=== PATIENT | male | born 1970 | race Caucasian/White ===

== ENCOUNTER 2020-12-21 12:17 | Outpatient (CLI) | payer OTHER, SELFPAY ==
--- NOTE | ~2020-12-21 | CT_ITS ---
EXAMINATION: CT abdomen pelvis wo/w con DATE: 12/21/2020 13:04 INDICATION: Hematuria. TECHNIQUE: Computed tomography (CT) of the abdomen and pelvis was performed without and with intraven ous contrast using a total of 130 mL Omnipaque-350 intravenous contrast with a double-bolus technique for simultaneous opacification of the renal parenchyma and renal collecting system. Automated exposu re control and iterative reconstruction technique were employed. The dose-length product was 2427.38 mGy-cm. COMPARISON: CT abdomen and pelvis 02/15/2015 FINDINGS: The visualized portions of the lung bases demonstrate mild atelectasis. No pleural effusion. The hear t size is normal. No pericardial effusion. The liver and spleen are normal. There are changes of chol ecystectomy. The pancreas, adrenal glands, and kidneys are normal. There is no urolithiasis. The uret ers are well opacified and are normal. The bladder is normal. The prostate is mildly enlarged. There is diverticulosis of the colon without evidence of diverticulitis. There are no dilated loops of clara l. The appendix is normal. There is no free intraperitoneal fluid. There is a left inguinal hernia co ntaining fat. Again seen is fat stranding at the root of the small bowel mesentery that may be inflam mation, edema, or scarring. There is a mildly enlarged 10 x 22 mm mesenteric lymph node, likely react zeeshan. There are chronic bilateral L5 pars defects with 8 mm anterolisthesis of L5 on S1. There is mild thoracolumbar spondylosis. IMPRESSION: 1. No specific etiology for hematuria. Reviewed, dictated and finalized at location A.
== END 2020-12-21 12:18 | disposition home or self-care (01) ==
PROVIDERS: PCP Family Medicine; Visit Provider Urology
DX: R31.29 Other microscopic hematuria (principal)
CPT/HCPCS: 74178; Q9967

== ENCOUNTER → 2024-03-10 15:13 | Outpatient (REF) | payer OTHER, SELFPAY | LOC: ANHLAB 15:13 | PROVIDERS: PCP Family Medicine; Visit Provider Plastic Surgery | DX: D23.39 Other benign neoplasm of skin of other parts of face (principal); L72.0 Epidermal cyst | CPT/HCPCS: 88305 ==

== ENCOUNTER 2025-06-15 01:38 | Day surgery (SDC) | payer OTHER, SELFPAY ==
--- OUTSIDE RECORDS SUMMARY | 2005-02-23 05:15 | XMS_ITS | Continuity of Care Document ---
Author Organization [facility] Address [address] [place] [address] Phone Care Team Providers Care Senior Software Qa Analyst Name Role Phone Anne Marie Alvarez MD Unavailable Unavailable Advance Directives Directive Yes / No Effective Date File Name No Information Encounters Encounter Description Practice Location Reason(s) For Visit Diagnoses Date Provider Providers Copied on Encounter [facility], [address] [place] [address] [address], [place], [place], [id number], [place] tel:[phone] [facility] Professional No Information Jai-1 0-200 5 Kim Kenney. [address] [facility] [place], [address], [place]. tel:[phone] Family History Family Member Type Diagnosis Age At Onset No Information Payers Payer name Insurance type Covered libertarian ID Authoriza tion(s) No Information Social History Type Description Quantity Date Captured Comments Sex Male Smoking Status No Information Chief Complaint And Reason For Visit No Information Reason For Referral Reason For Referral No Information History Of Present Illness Encounter Date Complaint History Of Prese nt Illness No Information Functional Status Date Functional Assessmen t No Information Instructions Date Instruction Additional Infor mation No Information Assessments Type Assessment Date No Information Patient Care Teams Name Effective Dates (start - stop) Status Members No Information
[2025-05-31 12:17] VITALS: BMI 29.2
--- OUTSIDE RECORDS SUMMARY | 2025-06-15 01:40 | XMS_ITS | Clinical Summary ---
Author Organization [facility] Address [address] [place] [address] Care Team Providers Care Helper Driver Name Role Phone Unavailable Primary Care Provider Unavailabl e Source Comments [facility],non-owned Affiliates and Associated Physician Practices is amultiple site organization consisting of ambulatory clinics and hospital sitesin [place], [place], [place] and [place]. This disclosure is being madepursuant to the Care Everywhere program and may not contain all information available regarding this patient. 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 Gender Identity Not on file Sexual Orientation Not on file Plan of Treatment Health Maintenance Due Date Last Done Comments COLOGUARD (AGES 45-75) - COL ON CA SCREENING 1969 COLON MONITORING 1969 COLONOSCOPY - COLON CA SCREENING 1969 CT COLONOGRAPHY - COLON CA SCREENING 1969 Colorectal Cancer Screening 1969 FIT - COLON CA SCREENING 1969 FLEX SIG - COLON CA SCREENING 1969 LIPID TESTING 1969 HIV SCREENING 1984 HEPATITIS C SCREENING 06/26/1987 DTAP/TDAP/TD VACCINES (1 - Tdap) 1988 HEPATITIS B VACCINE (1 of 3 - 19+ 3-dose series) 1988 PNEUMOCOCCAL VACCINE 50+ (1 of 1 - PCV) 2019 ZOSTER VACCINE (1 of 2) 2019 DEPRESSION SCREENING 09/16/2024 COVID-19 VACCINE (1 - 2023-2 5 season) 2025 INFLUENZA VACCINE (#1) 2025 HIB VACCINE Aged Out No longer eligi ble based on patient's age to complete this topic HPV VACCINE Aged Out No longer eligi ble based on patient's age to complete this topic MENINGOCOCCAL (Group B) VACC INE SHARED DECISION-MAKING Aged Out No longer eligibl e based on patient's age to complete this topic MENINGOCOCCAL GROUPS A/C/Y/W VACCINE Aged Out No longer eligible b ased on patient's age to complete this topic Insurance * Guarantor: BOSTON COELHO Account Type Relation to Patient Date of Phone Billing Address Personal/Family [address] [place] [address] SELF PAY NO INSURANCE Member Subscriber Plan / Payer (Ef fective for All Dates) Name:Boston Coelho Member ID:Not on file Relation to Subscriber:Not on file Name:BOSTON COELHO Subscriber ID:Not on file Address: [place] [address] Payer ID:Not on file Group ID:Not on file Type:Self Pay Address: [facility] * Guarantor: BOSTON COELHO Account Type Relation to Patient Date of Phone Billing Address Personal/Family [address] [place] [address] SELF PAY NO INSURANCE Member Subscriber Plan / Payer (Ef fective for All Dates) Name:Boston Coelho Member ID:Not on file Relation to Subscriber:Not on file Name:BOSTON COELHO Subscriber ID:Not on file Address: [address] [address] Payer ID:Not on file Group ID:Not on file Type:Self Pay Address: [facility] * Guarantor: BOSTON COELHO Account Type Relation to Patient Date of Phone Billing Address Personal/Family [address] [place] [address] SELF PAY NO INSURANCE Member Subscriber Plan / Payer (Ef fective for All Dates) Name:Boston Coelho Member ID:Not on file Relation to Subscriber:Not on file Name:BOSTON COELHO Subscriber ID:Not on file Address: [address] [place] [address] Payer ID:Not on file Group ID:Not on file Type:Self Pay Address: [facility]
--- OUTSIDE RECORDS SUMMARY | 2025-06-15 01:40 | XMS_ITS | Clinical Summary ---
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 Care Teams Dairy Feed Worker Relationship Specialty Start Date End Date Demario Ordoñez MD PCP - General 08/22/16
[2025-06-15 07:02] VITALS: BP 126/103; PULSE 74; RESP 19; TEMP 36.2; O2SAT 74
[2025-06-15] MEDS: LACTATED RINGERS 1,000 ML 150 ML IV CONT (07:13)
--- NOTE | 2025-06-15 07:15 | P.PNAN_ITS ---
Anes - Initial Pre Proc Eval Procedure: Operation Date: 06/15/25 08:00 Proposed Procedures p Screening Colonoscopy - Yusuf Castaneda DO Date/Time: 06/15/25 07:15 Surgeon: Yusuf Castaneda DO Pre Op Diagnosis: Neoplasm screening Patient Data Age: 54 Gender: M Height: 1.83 m Weight: 97.5 kg Last Vital Signs Temp 97.1 F L 06/15/25 07:02 Pulse 74 06/15/25 07:02 Resp 19 06/15/25 07:02 BP 126/103 H 06/15/25 07:02 Pulse Ox 74 L 06/15/25 07:02 O2 Del Method Room Air 06/15/25 07:02 Allergies Allergy/AdvReac Type Severity Reaction Status Date / Time amoxicillin AdvReac does not Verified 06/15/25 07:00 work Home Medications ?Medication ?Instructions ?Recorded ?Confirmed ?Type testosterone (AndroGel) 2 pump topical DAILY #150 gr ams 12/30/24 06/15/25 Rx needle (disp) 18 G 18 gauge x 1 #100 ea 01/08/2505/17 Rx (BD Regular Bevel [place]) vilazodone 10 mg tablet See Rx Instructions .Route 0 01/08/25 06/15/25 Rx .COMPLEX #90 tabs bupropion HCl 300 mg 24 hr tablet, See Rx Instructions .Route 04/06/25 06/15/25 Rx extended release .COMPLEX #90 tabs Patient hx anesthesia problems: none Family hx anesthesia problems: none Results Review: All pre-operative results and documents have been reviewed as part of the pre- operative evaluation. [facility] Past Medical History Medical History COVID-19 Obesity (BMI 30.0-34.9) Nevus sebaceous Family History Family History Father Parkinson disease Social History Social History Smoking status: Never smoker Alcohol intake: current Drinks per week: 4 Alcohol use details: BEER Substance use: never Substance use type: does not use Do You Feel Safe in your Home?: Yes Lack of Transportation: No Lack of Food: Never True Current Housing: I Have Housing Concerned About Future Housing: No Difficulty Paying Gas/Electric Bills: No Difficulty Paying for Meds: No Currently Unemployed: No Education: Bachelor's Degree Difficulty w/ Childcare or Family Care: No Living arrangements: with family Spiritual care concerns: No Anes - Eval Final PreProcedure Day of Procedure 06/15/25 07:15 Patient weight: overweight Lungs: normal air movement Airway: Mallampati scale class II Neurological: alert and oriented Last oral intake: >/= 8 hours ASA classification: I Emergent: no Anesthetic plan: proceed Anesthesia type and monitoring: general GIVS and standard monitoring Results Review: All pre-operative results and documents have been reviewed as part of the pre- operative evaluation. BMI 29, overall active w 1-2 fos, no cp or sob. Informed Consent: The patient's anesthetic plan and its attendant risks and benefits were discussed with the patient/family/POA. Questions were solicited and answers provided to the satisfaction of the patient/family/POA.
--- NOTE | 2025-06-15 07:22 | P.HP_ITS ---
H&P: HPI History of Present Illness Date/Time: 06/15/25 07:22 Chief Complaint: Screening for colorectal cancer Narrative: 54 yo man presents for colonoscopy. patient states he had a colonoscopy about 20 years ago when he was having some abdominal discomfort. That colonoscopy was normal. He denies family history of colon cancer. He has had a couple episodes of bright red bleeding during bowel movements. Review of Systems Review of Systems: All systems reviewed & are unremarkable except as noted in HPI and below Constitutional: Constitutional: Denies chills, Denies fever(s), Denies headache(s) and Denies weight loss Eyes: Eyes: Denies change in vision ENT: Denies dizziness, Denies headache(s), Denies neck mass and Denies throat swelling Cardiovascular: Cardiovascular: Denies chest pain, Denies lightheadedness and Denies dyspnea Respiratory: Respiratory: Denies cough, Denies dyspnea and Denies wheezing Gastrointestinal: Gastrointestinal: Denies abdominal pain, Denies change in bowel habits, Denies nausea and Denies vomiting Genitourinary: Genitourinary: Denies hematuria and Denies dysuria Musculoskeletal: Musculoskeletal: Reports as per HPI Integumentary/Breasts: Skin/Breast: Reports as per HPI Neurologic: Denies dizziness and Denies headache(s) Allergic/Immunologic: Allergic/Immunologic: Denies throat swelling and Denies wheezing PMFSH Past Medical History Medical History COVID-19 Obesity (BMI 30.0-34.9) Nevus sebaceous Family History Family History Father Parkinson disease Social History Social History Smoking status: Never smoker Alcohol intake: current Drinks per week: 4 Alcohol use details: BEER Substance use: never Substance use type: does not use Do You Feel Safe in your Home?: Yes Lack of Transportation: No Lack of Food: Never True Current Housing: I Have Housing Concerned About Future Housing: No Difficulty Paying Gas/Electric Bills: No Difficulty Paying for Meds: No Currently Unemployed: No Education: Bachelor's Degree Difficulty w/ Childcare or Family Care: No Living arrangements: with family Spiritual care concerns: No Meds Home Medications and Allergies Home Medications ?Medication ?Instructions ?Recorded ?Confirmed ?Type testosterone (AndroGel) 2 pump topical DAILY #150 gr ams 12/30/24 06/15/25 Rx needle (disp) 18 G 18 gauge x 1 #100 ea 01/08/2505/17 Rx (BD Regular Bevel [place]) vilazodone 10 mg tablet See Rx Instructions .Route 0 01/08/25 06/15/25 Rx .COMPLEX #90 tabs bupropion HCl 300 mg 24 hr tablet, See Rx Instructions .Route 04/06/25 06/15/25 Rx extended release .COMPLEX #90 tabs Allergies Allergy/AdvReac Type Severity Reaction Status Date / Time amoxicillin AdvReac does not Verified 06/15/25 07:00 work Vital Signs Vital Signs - 24 hr 06/15/25 07:02 Temperature 97.1 F L Pulse Rate 74 Respiratory Rate 19 Blood Pressure 126/103 H Pulse Oximetry 74 L Oxygen Delivery Room Air Exam Const: General: no acute distress and alert Orientation/consciousness: patient oriented x3 HENMT: Head: normocephalic and atraumatic Ears: hearing grossly normal bilaterally Face/Nose/Sinus: Normal nares present Mouth: Yes Normal oral and palatal mucosa present Eyes: Periorbital: periorbital findings normal Sclera: sclerae normal EOM: EOMs intact bilaterally Neck: Neck: normal visual inspection, no lymphadenopathy and trachea midline Chest: Chest palpation & inspection: normal inspection of the chest Resp: Effort & Inspection: normal respiratory effort Auscultation: clear to auscultation bilaterally Cardio: Jugular venous distension: no JVD Rate: regular rate Rhythm: regular rhythm Heart sounds: S1 normal heart sound present and S2 normal heart sound present Peripheral pulses: Peripheral pulses 2+ throughout GI: Inspection: normal to inspection GI Palp: Yes Soft to palpation, No Tenderness to palpation present (GI), No Guarding due to palpation present (GI) and No Rebound tenderness present Percussion: Yes normal to percussion Auscultation: normal bowel sounds : General: Yes no CVA tenderness Back/Spine/Pelvis: Back: no CVA tenderness Neuro: General: patient oriented x3, no focal motor deficits and CN's II-XI intact bilaterally Cognition (Neuro): normal cognition Speech: normal speech Motor exam (neuro): 5/5 motor strength present throughout Extrem: General: capillary refill normal and no clubbing, cyanosis or edema Assessment and Plan Assessment and plan (1) Screening for colorectal cancer: Code(s): Z12.11 - Encounter for screening for malignant neoplasm of colon; Z12.12 - Encounter for screening for malignant neoplasm of rectum Status: Acute Assessment and Plan: I have recommended colonoscopy. I have discussed the procedure, risks, benefits, and alternatives. Questions were answered. Patient is agreeable to proceed.
--- NOTE | 2025-06-15 08:24 | S_PTH ---
PATIENT: Lawrence Billings LOC: [facility] U#:[id number] AGE/SX: 54/M ROOM: RE06/15/[address]: Yusuf Castaneda DO : 1970 BED: DIS: 06/15/2025 SPEC #: [id number] RECD: 06/15/25 08:32 STATUS: CARISSA REQ #: [id number] JASE: 06/15/25 08:[address]: Yusuf Castaneda DEPT: [facility] [place] Surgical RECD BY: Kateryna Walsh ENTERED: 06/15/25 08:32 SP TYPE: Surgical OTHR DR: Demario Ordoñez MD Tissues: A - Colon Polypectomy Procedures: Hematoxylin and Eosin Stain Gross and Microscopic Level 4
[2025-06-15 08:27] VITALS: BP 120/79; PULSE 71; RESP 18; O2SAT 98
[2025-06-15 08:37] VITALS: BP 114/90; PULSE 72; RESP 18; O2SAT 98
[2025-06-15 08:47] VITALS: BP 114/80; PULSE 76; RESP 17; O2SAT 98
== END 2025-06-15 08:50 | disposition home or self-care (01) ==
PROVIDERS: PCP Family Medicine; Visit Provider Surgery
PROC: 0DJD8ZZ Inspection of Lower Intestinal Tract, Via Natural or Artificial Opening Endoscopic (ICD-10-PCS; CPT 45378; principal; 2025-06-15 08:00)
DX: Z12.11 Encounter for screening for malignant neoplasm of colon (principal); D12.0 Benign neoplasm of cecum; K57.30 Diverticulosis of large intestine without perforation or abscess without bleeding; Z87.2 Personal history of diseases of the skin and subcutaneous tissue
CPT/HCPCS: 45385; 88305; J2003; J2704; J7120